=== PATIENT | female | born 1955 | race Caucasian/White ===

== ENCOUNTER 2016-09-28 06:06 | Day surgery (SDC) | payer BC ==
[2016-09-26 13:49] LABS: BASOPHILS 0.3 %; BASOPHILS ABSOLUTE 0.02 10/3/uL (0.0-0.16); EOSINOPHILS 3.9 %; EOSINOPHILS ABSOLUTE 0.24 10/3/uL (0.0-0.53); IMMATURE GRANULOCYTES 0.3 %; IMMATURE GRANULOCYTES ABSOLUTE 0.02 10/3/uL (0.0-0.11); LYMPHOCYTES 23.1 %; LYMPHOCYTES ABSOLUTE 1.43 10/3/uL (0.67-4.30); MEAN CORPUSCULAR HEMOGLOB 30.9 pg (26.0-34.0); MEAN PLATELET VOLUME 9.9 fL (9.2-13.0); MONOCYTES 10.7 %; MONOCYTES ABSOLUTE 0.66 10/3/uL (0.21-1.20); NEUTROPHILS 61.7 %; NEUTROPHILS ABSOLUTE 3.82 10/3/uL (2.02-8.40); PLATELET COUNT 391 10/3/uL (150-400); RBC DISTRIBUTION WIDTH 14.1 % (12.0-16.0); WHITE BLOOD CELLS 6.2 10/3/uL (4.5-10.5)
[2016-09-26 13:52] LABS: HEMOGLOBIN 11.9 g/dL (12.0-16.0); MANUAL DIFF NO %; MEAN CORPUS HGB CONC 33.1 g/dL (32.0-36.0); MEAN CORPUSCULAR VOLUME 93.5 fL (80-100); RED CELL COUNT 3.85 10/6/uL (4.0-5.6)
[2016-09-26 14:08] LABS: A/G RATIO 1.4 (0.7-1.9); ALBUMIN 3.8 G/DL (3.5-5.0); ALKALINE PHOSPHATASE 75 U/L (45-117); BUN (BLOOD UREA NITROGEN) 8 MG/DL (6-23); CALCIUM, SERUM 9.4 MG/DL (8.5-10.4); CHLORIDE, SERUM 104 MMOL/L (96-112); CO2 (CARBON DIOXIDE) 30 MMOL/L (24-34); CREATININE 0.93 MG/DL (0.55-1.02); GFR AFRICAN AMERICAN 76 ML/MIN (>=60); GFR NON AFRICAN AMERICAN 65 ML/MIN (>=60); GLOBULIN 2.8 G/DL (2.5-4.1); GLUCOSE, SERUM 105 MG/DL (60-99); POTASSIUM, SERUM 3.7 MMOL/L (3.5-5.3); SGOT(AST) 13 U/L (5-40); SGPT(ALT) 11 U/L (5-65); SODIUM, SERUM 142 MMOL/L (135-148); TOTAL BILIRUBIN 0.3 MG/DL (0-1.2); TOTAL PROTEIN 6.6 G/DL (6.0-8.5)
--- NOTE | ~2016-09-28 | OP ---
Record Of Operation [facility] [address] [place]. [address] NAME: SWETHA ROBLERO : 51 STATUS : [facility]#: [id number] AGE: 61 ADM/REG DATE : 09/28/16 MR#: [id number] REPORT SERV DATE: 09/30/16 DICTATED BY: LUCIA CONRAD JR. 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 The patient has been somewhat difficult and responses and stays sedated from self-medication. Even today, she presents and is basically asleep and hard to arouse from home narcotics and sedatives. She has been counseled many times at the [facility] with both me and also the nurse practitioner and nurse navigator. Her understanding is still somewhat limited, although she has been informed that mastectomy is certainly necessary and standard and also will have to have axillary dissection. Radiation therapy will be mandatory followed by hormone blocking therapy. Her risks of local recurrence are increased due to the local extent of the tumor. I would say she has had some response to the tumor with some shrinkage, but generous mass of tumor or tumor necrosis is evident measuring over 5 cm, while the plaque of tumor involving the skin is minimally changed and measures about 3 cm. It is located quite high in the breast and therefore an inferiorly based flap will be necessary for coverage. PREOPERATIVE DIAGNOSIS: Locally advanced carcinoma, left breast. POSTOPERATIVE DIAGNOSIS: Locally advanced carcinoma, left breast. SURGEON: Lucia Conrad M.D. SURGERY PERFORMED: Excision of venous port followed by left mastectomy and axillary dissection. DESCRIPTION OF PROCEDURE: Under general anesthesia, the patient was prepped and draped in the supine position in the usual sterile fashion. An incision was made and the venous port on the right side was removed in toto. The wound was irrigated and hemostasis obtained. Wound was closed with three layers of Monocryl. There was no cloth and indeed her veins have been known to be open and I assume her problem involves the usual fibrin sheath that occurs with venous ports. Attention then turned to the left breast. The left breast mound was marked and an oblique oriented incision was marked. This involves the incision to be made at the very inferior edge of the left areola with a very generous amount of the superior part of this skin to be removed as it is involved. The breast has significant volume loss from the tumor puckering and drawling in, therefore, this small breast will be somewhat difficult in closing, but an inferior flap advancement is to be done. The incision was made and flaps elevated in each direction to incorporate the entire breast mound. The flap was undermined further along the inferior margin to allow for advancement. The latissimus was cleared laterally and dissection was carried into the low axilla. The breast was then removed from above downward incorporating the fascia. Record Of Operation [facility] [place] [id number] [facility] [place]. [address] NAME: SWETHA ROBLERO : 51 STATUS : [facility] PAT#: [id number] AGE: 61 ADM/REG DATE : 09/28/16 MR#: [id number] REPORT SERV DATE: 09/30/16 DICTATED BY: LUCIA CONRAD JR. DATE: 09/28/16 REPORT STATUS : Draft TRANSCRIBED BY: DELORES DATE: 09/28/16 As dissection was carried into the low axilla, with adequate retraction of the muscles, level 2 and then level 1 nodes were dissected from medial to lateral from off the axillary vein. Bridging lymphatic and venous tissues were clipped and divided. The long thoracic and thoracodorsal bundle were preserved. Once the latissimus was encountered laterally, the dissection was carried off inferiorly off the chest wall and specimen removed and oriented for pathology. I did request a frozen section of the superior margin as the skin is somewhat thick, but no evidence of tumor along the superior margin. Two suction drains were inserted and secured to the skin with Prolene. The wound was closed with 2 layers of Monocryl. The patient tolerated the procedure well without complications. ESTIMATED BLOOD LOSS: Less than 30 mL. SPONGE COUNT: Correct. /DELORES Lucia Conrad Jr., M.D. / [id number] CC: Lucia Conrad Jr., M.D. Jaron Reynaga IV, M.D. Teofilo Spangler NP
[~2016-09-28 06:06] MED LIST: ALB4 PO; ASAB PO; KLOR-CON M2020 MEQ PO; LOTREL1 CA4 PO; MEVACOR PO; NORCO1 TAB PO; SOMATAB PO; TYLENOL CHEWABLE PO; V5 PO; XARELTO20 MG PO
== END 2016-09-28 18:16 | disposition home or self-care (01) ==
LOC: SDC 06:06
PROVIDERS: Surgery Surgical Oncology
PROC: 07B60ZX Excision of Left Axillary Lymphatic, Open Approach, Diagnostic (ICD-10-PCS; 2016-09-28)
PROC: 0JPT0XZ Removal of Tunneled Vascular Access Device from Trunk Subcutaneous Tissue and Fascia, Open Approach (ICD-10-PCS; 2016-09-28)
PROC: 0HTU0ZZ Resection of Left Breast, Open Approach (ICD-10-PCS; principal; 2016-09-28 07:45)
DX: C50.912 Malignant neoplasm of unspecified site of left female breast (principal); J44.9 Chronic obstructive pulmonary disease, unspecified; M19.90 Unspecified osteoarthritis, unspecified site; F41.9 Anxiety disorder, unspecified; I10 Essential (primary) hypertension; E78.5 Hyperlipidemia, unspecified; Z86.73 Personal history of transient ischemic attack (TIA), and cerebral infarction without residual deficits; Z98.890 Other specified postprocedural states; Z86.718 Personal history of other venous thrombosis and embolism; Z88.1 Allergy status to other antibiotic agents; Z88.8 Allergy status to other drugs, medicaments and biological substances; Z79.891 Long term (current) use of opiate analgesic; Z79.899 Other long term (current) drug therapy
CPT/HCPCS: 80053; 85025; 88309; 88331; 88342; 88360; 93005; A9270-GY; J0690; J1170; J2250; J2405; J2550; J3010